=== PATIENT | female | born 1945 | race Caucasian/White ===

== ENCOUNTER 2017-02-01 07:19 | Day surgery (SDC) | payer OTHER, BC ==
[2017-01-31 10:19] VITALS: BMI 19.8
[2017-02-01] MEDS ORDERED: PROPOFOL 20 ML ONE ×2 (07:24)
[2017-02-01] MEDS ORDERED: ONDANSETRON 4 MG/2 ML VIAL IVPUSH PRN (08:20)
[2017-02-01 09:03] VITALS: TEMP 98.6
[2017-02-01 09:18] VITALS: BP 128/63; PULSE 71
== END 2017-02-01 09:20 | disposition home or self-care (01) ==
LOC: FASU-ENDO 07:19
PROVIDERS: ATTEND Internal Medicine Gastroenterology
PROC: 0DJD8ZZ Inspection of Lower Intestinal Tract, Via Natural or Artificial Opening Endoscopic (ICD-10-PCS; principal; 2017-02-01 08:22)
DX: Z12.11 Encounter for screening for malignant neoplasm of colon (principal)